=== PATIENT | female | born 1960 | race Two or more races ===

== ENCOUNTER 2017-01-06 16:06 | Emergency (ER) | payer OTHER ==
[~2017-01-06] VITALS: Ht 154.9 cm; Wt 85.3 kg
[~2017-01-06 16:06] MED LIST: CEPH-37 PO; DICY20TA38 PO; GABA-339 PO; LISI-646 PO; LORA2TAB89 PO; NOR10T PO; OMEPRAZOLE PO
[2017-01-06 16:24] VITALS: BP 137/67
== END 2017-01-06 20:01 | disposition left against medical advice (07) ==
LOC: EDBD 16:06 → ER 16:06 → EDUNIT# 16:06 → ER 20:01
DX: R06.02 Shortness of breath (principal); Z53.21 Procedure and treatment not carried out due to patient leaving prior to being seen by health care provider